=== PATIENT | female | born 1995 | race Two or more races ===

== ENCOUNTER 2018-09-15 03:39 | Inpatient (IN) | payer OTHER ==
[~2018-09-15] VITALS: Ht 167.6 cm; Wt 76.2 kg
[2018-09-18] MEDS ORDERED: CODE1TAB37 PO (07:59)
[2018-09-18] MEDS ORDERED: IBUPROFEN800 MG PO (07:59)
== END 2018-09-18 11:08 | disposition home or self-care (01) | DRG 743 ==
LOC: ER 03:39 → SEC-K 14:07 → OB/GYN 14:07
PROVIDERS: ADMIT Obstetrics & Gynecology
PROC: BW21ZZZ Computerized Tomography (CT Scan) of Abdomen and Pelvis (ICD-10-PCS; 2018-09-15)
PROC: BW4GZZZ Ultrasonography of Pelvic Region (ICD-10-PCS; 2018-09-15)
PROC: 0UB10ZZ Excision of Left Ovary, Open Approach (ICD-10-PCS; principal; 2018-09-15 19:00)
DX: N80.1 Endometriosis of ovary (principal); G89.18 Other acute postprocedural pain

== ENCOUNTER 2020-05-23 13:30 | Inpatient (IN) | payer OTHER ==
[~2020-05-23] VITALS: Ht 170.2 cm; Wt 3.2 kg
[~2020-05-23 13:30] MED LIST: CODE1TAB37 PO; IBUPROFEN800 MG PO
[2020-06-19] MEDS ORDERED: PRENATAL TABLE1 EAC1 PO (06:51)
== END 2020-06-22 11:45 | disposition home or self-care (01) | DRG 787 ==
LOC: OB/GYN 06-12 13:30 → LDR 06-19 06:17 → O/R 06-20 17:42 → OB/GYN 06-20 19:50
PROVIDERS: ADMIT Obstetrics & Gynecology; ATTEND Obstetrics & Gynecology
PROC: 3E0P7VZ Introduction of Hormone into Female Reproductive, Via Natural or Artificial Opening (ICD-10-PCS; 2020-06-19)
PROC: 4A1HXFZ Monitoring of Products of Conception, Cardiac Rhythm, External Approach (ICD-10-PCS; 2020-06-19)
PROC: 10D00Z1 Extraction of Products of Conception, Low, Open Approach (ICD-10-PCS; principal; 2020-06-20 16:00)
DX: O61.8 Other failed induction of labor (principal); O98.313 Other infections with a predominantly sexual mode of transmission complicating pregnancy, third trimester; O48.0 Post-term pregnancy; Z3A.41 41 weeks gestation of pregnancy; Z37.0 Single live birth; A63.0 Anogenital (venereal) warts; Z20.828 Contact with and (suspected) exposure to other viral communicable diseases

== ENCOUNTER → 2020-06-28 | Emergency (ER) | payer OTHER ==
[~2020-06-28] VITALS: Ht 167.6 cm; Wt 81.6 kg
[~2020-06-28] MED LIST changes: +PRENATAL TABLE1 EAC1 PO
== END | disposition left against medical advice (07) ==
LOC: ER 12:33
DX: R10.13 Epigastric pain (principal); Z03.818 Encounter for observation for suspected exposure to other biological agents ruled out